=== PATIENT | male | born 1975 | race Two or more races ===

== ENCOUNTER 2022-12-24 10:38 | Emergency (ER) | payer MEDICAID ==
[~2022-12-24] VITALS: Ht 180.3 cm; Wt 77.1 kg
[2022-12-24 12:03] VITALS: BP 124/69; TEMP 98.4; O2SAT 100
== END 2022-12-24 12:03 | disposition home or self-care (01) ==
LOC: ER 10:52
DX: S01.111A Laceration without foreign body of right eyelid and periocular area, initial encounter (principal); Y08.89XA Assault by other specified means, initial encounter; Y93.89 Activity, other specified; Y92.89 Other specified places as the place of occurrence of the external cause; Y99.8 Other external cause status
CPT/HCPCS: 12011; 99283; A6403